=== PATIENT | male | born 1960 | race African-American/Black ===

== ENCOUNTER 2024-02-22 07:50 | Emergency (ER) | payer OTHER ==
[2024-02-22] MEDS ORDERED: Ketorolac Tromethamine 60 MG/2 ML VIAL ONE (08:27)
== END 2024-02-22 08:54 | disposition home or self-care (01) ==
LOC: NAV ERS 07:50
DX: M10.9 Gout, unspecified (principal); E11.9 Type 2 diabetes mellitus without complications; I10 Essential (primary) hypertension; Z87.891 Personal history of nicotine dependence; Z79.899 Other long term (current) drug therapy
CPT/HCPCS: 96372; 99283; J1885

== ENCOUNTER 2024-08-30 05:57 | Emergency (ER) | payer OTHER, MEDICARE ==
[2024-08-30] MEDS ORDERED: Dexamethasone 10 MG/ML VIAL ONE (06:24)
[2024-08-30] MEDS ORDERED: Ketorolac Tromethamine 60 MG/2 ML VIAL ONE (06:24)
== END 2024-08-30 07:19 | disposition home or self-care (01) ==
LOC: NAV ERS 05:57
DX: M10.9 Gout, unspecified (principal); E11.9 Type 2 diabetes mellitus without complications; I10 Essential (primary) hypertension; E78.5 Hyperlipidemia, unspecified; Z79.84 Long term (current) use of oral hypoglycemic drugs; Z79.4 Long term (current) use of insulin; Z79.899 Other long term (current) drug therapy; Z87.891 Personal history of nicotine dependence
CPT/HCPCS: 96372; 99283; J1100; J1885